=== PATIENT | male | born 1945 | race Hispanic/Latino ===

== ENCOUNTER 2018-08-25 17:30 | Inpatient (IN) | payer MEDICARE | END 2018-08-29 14:01 | disposition home or self-care (01) | LOC: EDH 17:30 → EDHIP 19:51 → 3CH 08-26 17:46 | DX: J12.9 Viral pneumonia, unspecified (principal); J96.91 Respiratory failure, unspecified with hypoxia; J44.1 Chronic obstructive pulmonary disease with (acute) exacerbation; J44.0 Chronic obstructive pulmonary disease with (acute) lower respiratory infection ==

== ENCOUNTER → 2024-02-20 | Outpatient (CLI) | payer MEDICARE | END | disposition home or self-care (01) | LOC: RAH 12:20 | PROVIDERS: ATTEND Family Medicine | DX: G31.89 Other specified degenerative diseases of nervous system (principal); R41.82 Altered mental status, unspecified; R29.6 Repeated falls; F10.20 Alcohol dependence, uncomplicated | CPT/HCPCS: 70450 ==

== ENCOUNTER 2024-08-31 12:33 | Emergency (ER) | payer MEDICARE, OTHER ==
[~2024-08-31] VITALS: Ht 160 cm; Wt 52.2 kg
--- NOTE | 2024-08-31 12:48 | ERN ---
ED Note History of Present Illness Stated Complaint: WEAKNESS Chief Complaint: Weakness Time Seen by MD: 12:38 Dictation: PATIENT IS A 79-YEAR-OLD MALE COMING IN VIA EMS WITH COMPLAINTS OF SEVERE GENERALIZED BODY WEAKNESS, DECREASED APPETITE FOR THE LAST SEVERAL DAYS. NO F EVER NO CHILLS NO NAUSEA VOMITING. EMS STATES FAMILY TOLD HIM THEY HE HAD BEEN TO [facility] WITH A HIM TWO DAYS AGO AND BEEN DIAGNOSED WITH A URINARY TRACT INFECTION WAS PRESCRIBED ANTIBIOTICS. HE HAS NOT DONE ANY BETTER SINCE THAT VISIT, HE HAS NOT BEEN TO SEE HIS PRIMARY CARE DOCTOR. PATIENT IS ALERT AND ORIENTED IS ANSWERING QUESTIONS STATES HE HAS NO PAIN AT THIS TIME. Allergies: Coded Allergies: No Known Allergies (Verified Allergy, Unknown, 08/25/18) Home Meds No Active Prescriptions or Reported Meds Past Medical History Past Medical History: No Pertinent History Surgical History: None RN Note Reviewed/Agreed w/PFSH: Yes Review of System Dictation CONSTITUTIONAL: NEGATIVE EXCEPT FOR HPI WEAK HEAD/FACE: NEGATIVE EXCEPT FOR HPI EENT: NEGATIVE EXCEPT FOR HPI RESPIRATORY: NEGATIVE EXCEPT FOR HPI GASTROINTESTINAL/ABDOMINAL: NEGATIVE EXCEPT FOR HPI GENITOURINARY: NEGATIVE EXCEPT FOR HPI MUSCULOSKELETAL: NEGATIVE EXCEPT FOR HPI INTEGUMENTARY: NEGATIVE EXCEPT FOR HPI NEUROLOGICAL/PSYCH: NEGATIVE EXCEPT FOR HPI HEMATOLOGIC/LYMPHATIC: NEGATIVE EXCEPT FOR HPI ALL SYSTEMS NEGATIVE, EXCEPT NOTED ABOVE. 13 POINT REVIEW OF SYSTEMS ASSESSED AND ALL NEGATIVE EXCEPT FOR ABOVE. Initial Vital Sign VS Vital Signs Date Time Temp Pulse Resp B/P (MAP) Pulse Ox O2 Delivery O2 Flow Rate FiO2 08/31/24 12:34 100.6 84 16 129/74 98 Room Air 0 08/31/24 12:48 21 Physical Exam Dictation VITAL SIGNS REVIEWED GENERAL APPEARANCE: ALERT, ORIENTED X 3, PATIENT VERY WEAK AND DEBILITATED.. HEAD AND FACE: NON-TRAUMATIC. EYES: PERRL, PINK CONJUNCTIVAS, EYELID NO TRAUMA, ANTERIOR CHAMBER WITH ARCUS SENILIS. EARS: PINNAS INTACT AND NO SIGNS OF TRAUMA OR ERYTHEMA EAR CANALS CLEAR AND NO DISCHARGE TM NO ERYTHEMA NOSE: NO DISCH, TONGUE PINK, DRY MUCOUS MEMBRANE PHARYNX CLEAR,NO ERYTHEMA, TONSILS NO EXUDATES, NO ABSCESSES NOTED, MUCOUS MEMBRANE MOIST NECK: SUPPLE, NON-TENDER, NO THYROMEGALY, NO MASSES, NO JVD, NO BRUITS BREAST:DEFERRED CHEST:NO TENDERNESS, NO CREPITUS, NO PARADOXICAL MOVEMENT, NO RETRACTIONS LUNGS:CLEAR, WELL-VENTILATED, SYMMETRIC, NO RALES, NO WHEEZING, NO RHONCHI, NO STRIDOR, GOOD BREATH SOUNDS BILATERALLY HEART: REGULAR RATE, REGULAR RHYTHM, NO MURMUR, NO GALLOPS VASCULAR: NO PERIPHERAL EDEMA, ABDOMEN: SOFT, POSITIVE BOWEL SOUNDS, NONDISTENDED, NO GUARDING, NONTENDER, NO REBOUND, NO MASSES NO HEPATOMEGALY, NO SPLENOMEGALY, NO SPENCER'S SIGN, NO HERNIAS. RECTAL: DEFERRED GENITAL: DEFERRED NEUROLOGICAL: NORMAL SPEECH, MOTOR FUNCTION INTACT, SENSORY FUNCTION INTACT 4/+5 STRENGTH ALL EXTREMITIES MUSCULOSKELETAL: NECK NONTENDER, FULL RANGE OF MOTION, BACK NONTENDER, FULL RANGE OF MOTION, EXTREMITIES: NONTENDER, FULL RANGE OF MOTION SKIN: COLOR PINK, DRY, NO TURGOR, NO RASH, NO LACERATIONS, NO ABRASIONS, NO CONTUSIONS. LYMPHATIC: DEFERRED Results (Laboratory/Radiology) Laboratory/Radiology Laboratory Tests Test 08/31/24 13:19 08/31/24 15:20 White Blood Count 4.9 K/uL (4.8-10.8) Red Blood Count 3.78 MIL/uL (4.50-6.20) L Hemoglobin 11.2 g/dL (14.0-18.0) L Hematocrit 34.8 % (42-54) L Mean Corpuscular Volume 92.1 fL (79-99) Mean Corpuscular Hemoglobin 29.6 pg (27.0-33.0) Mean Corpuscular Hemoglobin Concent 32.2 g/dL (32.0-36.0) Red Cell Distribution Width 14.7 % (11.0-15.5) Platelet Count 148 K/uL (130-400) Mean Platelet Volume 11.5 fL (7.5-10.5) H Immature Granulocyte % (Auto) 0.4 % (0-1) Neutrophils (%) (Auto) 80.4 % (40.0-77.0) H Lymphocytes (%) (Auto) 8.9 % (21.0-51.0) L Monocytes (%) (Auto) 9.7 % (3.0-13.0) Eosinophils (%) (Auto) 0.2 % (0.0-8.0) Basophils (%) (Auto) 0.4 % (0.0-5.0) Neutrophils # (Auto) 4.0 K/uL (1.8-7.7) Lymphocytes # (Auto) 0.4 K/uL (1.0-4.8) L Monocytes # (Auto) 0.5 K/uL (0.1-1.0) Eosinophils # (Auto) 0.01 K/uL (0.00-0.70) Basophils # (Auto) 0.02 K/uL (0.00-0.20) Absolute Immature Granulocyte (auto 0.02 K/uL (0-1) Nucleated Red Blood Cells 0.0 % (0.0-0.19) White Cell Morphology Comment See comments Sodium Level 138 mmol/L (136-145) Potassium Level 4.4 mmol/L (3.5-5.1) Chloride Level 100 mmol/L (101-111) L Carbon Dioxide Level 31 mmol/L (21-32) Blood Urea Nitrogen 12 mg/dL (7-18) Creatinine 0.9 mg/dL (0.5-1.3) Glomerular Filtration Rate Calc 87 mL/min (>90) Random Glucose 123 mg/dL (70-105) H Total Calcium 8.8 mg/dL (8.5-10.1) Troponin I High Sensitivity 10 ng/L (4-75) Urine Color YELLOW (YELLOW) Urine Appearance CLOUDY (CLEAR) H Urine pH 6.0 (5.0-8.0) Urine Specific [place] 1.019 (1.001-1.031) Urine Protein 30 mg/dL (NEGATIVE) H Urine Glucose (UA) NEGATIVE mg/dL (NEGATIVE) Urine Ketones 10 mg/dL (NEGATIVE) H Urine Occult Blood LARGE (NEGATIVE) H Urine Nitrate 2+ (NEGATIVE) H Urine Bilirubin NEGATIVE mg/dL (NEGATIVE) Urine Urobilinogen 0.2 mg/dL (0.2-1.0) Urine Leukocyte Esterase 500 Daniella/uL (NEGATIVE) H Urine RBC 6-10 /HPF (0-1) H Urine WBC 51-100 /HPF (0-1) H Urine Bacteria MANY /HPF (None Seen) 1615/X-RAY OF PELVIS AND LEFT HIP NEGATIVE PATIENT DOES HAVE HISTORY OF SURGICAL REPAIR BILATERAL HIPS INTACT Labs Reviewed?: Yes EKG Comment: EKG SINUS RHYTHM/HEART RATE 83/OCCASIONAL PAC NONSPECIFIC CHANGES TO ANTEROSEPTAL LEADS ED Course ED Course Orders Procedure Category Date Status Time Cbc With Differential LAB 08/31/24 Complete 12:45 Troponin I High LAB 08/31/24 Complete Sensitivity 12:45 Urinalysis Profile LAB 08/31/24 Complete 12:45 12 Lead Ekg Tracing- EKG 08/31/24 Complete Technical 12:45 0.9%Nacl 1000ml (Ns PHA 08/31/24 Complete 1000ml) 13:00 Chest 1vw RAD 08/31/24 Resulted 12:45 Basic Metabolic Panel LAB 08/31/24 Complete 12:45 Covid19 (Sars Antigen LAB 08/31/24 Logged Rapid) 12:45 Straight Cath If No CPOE 08/31/24 Transmitted Void X6hrs 15:18 Hip Unilat 2-3vw Left RAD 08/31/24 Taken 15:24 Culture Urine LASHONDA 08/31/24 Logged 15:58 Ceftriaxone 2gm Vial PHA 08/31/24 Complete (Rocephin 2gm Inj) 16:30 Current Medications Medications (Trade) Dose Ordered Sig/Majo Route PRN Reason Start Time Stop Time Status Last Admin Dose Admin Ceftriaxone Sodium (Rocephin 2gm Inj) 2 gm ONCE ONCE IVPB 08/31/24 16:30 08/31/24 16:31 DC Sodium Chloride 1,000 ml @ 0 mls/hr ONCE ONCE IV 08/31/24 13:00 08/31/24 13:01 DC 08/31/24 13:53 Vital Signs Date Time Temp Pulse Resp B/P (MAP) Pulse Ox O2 Delivery O2 Flow Rate FiO2 08/31/24 16:33 99.1 98 16 138/68 98 Room Air* 0 21 08/31/24 14:07 80 16 128/69 99 Room Air* 0 21 08/31/24 12:48 100.6 97 16 139/84 97 Room Air* 0 21 08/31/24 12:34 100.6 84 16 129/74 98 Room Air 0 SIXTEEN 40 PATIENT WILL BE DISCHARGED HOME HEMODYNAMICALLY STABLE WITH AUGMENTIN SON TOLD TO CONTINUE ANTIBIOTICS AND TO SEE HIS PRIMARY CARE DOCTOR IN 1-2 DAYS. HEART Score Response (Comments) Value EKG: Repolarization changes 1 Age: > 65yrs (+2) 2 Risk Factors: 1-2 risk factors (+1) 1 Initial Troponin: Normal limit (0) 0 Total 4 Medical Decision Making MDM MDM: DIFFERENTIAL DIAGNOSIS: UTI/PELVIC FRACTURE/ACS/AMI/ELECTROLYTE IMBALANCE/DEHYDRATION RATIONALE: TESTS CONSIDERED AND ORDERED SECONDARY TO SHARED DECISION MAKING INCLUDE: EKG/LABS/RADIOLOGY PREVIOUS OUTSIDE RECORDS REVIEWED: OLD ER VISITS. RISK OF COMPLICATION AND/OR MORBIDITY OR MORTALITY OF PATIENT MANAGEMENT: NONE MEDICATIONS-PER MEDICATION RECONCILIATION NEED FOR HOSPITALIZATION: PATIENT DOES NOT MEET CRITERIA FOR HOSPITALIZATION. NO NEED FOR EMERGENCY MAJOR/MINOR SURGERY: NO THERE ARE NO SOCIAL CONCERNS WITH THIS PATIENT. PRESCRIPTION DRUG MANAGEMENT AUGMENTIN PRESCRIPTIONS WILL INCLUDE SYMPTOMATIC CARE PATIENT'S PRIOR EXTERNAL MEDICAL RECORDS FROM OTHER ER VISITS WERE REVIEWED BY ME INDICATED. PRIOR TESTING AND RESULTS FROM PREVIOUS VISITS WERE REVIEWED. PRIOR TESTS WERE TAKEN INTO ACCOUNT WITH MEDICAL DECISION MAKING AND RESOURCE UTILIZATION, INDEPENDENT HISTORIAN/HISTORIANS WERE USED TO OBTAIN COMPLETE MEDICAL HISTORY. I INDEPENDENTLY INTERPRETED THE TEST THAT WERE PERFORMED, RESULTS WERE REVIEWED BY ME AND CONSIDERED FINDINGS ON RADIOLOGY IF ORDERED. MEDICAL MANAGEMENT AND EXAMINATION INTERPRETATION DISCUSSIONS WERE HAD BY ME WITH OTHER QUALIFIED HEALTHCARE PROFESSIONALS INDICATED FOR THE PATIENT'S CARE. DX & DISP Disposition: Discharge Departure Impression: Primary Impression: Acute UTI Additional Impressions: Fall, Debilitated patient Condition: Stable Scripts Amoxicillin/Potassium Clav (Amox Tr-K Clv 875-125 mg Tab) 875 Mg-125 Mg Tablet 1 EACH PO BID for 7 Days, #14 TAB 0 Refills Prov: ANDERSON BELTRE NP 08/31/24 Additional Instructions: FOLLOW-UP WITH PRIMARY CARE PROVIDER IN 1 TO 2 DAYS. TAKE MEDICATIONS DIRECTED HERE IN THE EMERGENCY ROOM. OKAY TO CONTINUE HOME MEDICATIONS UNLESS OTHERWISE DISCUSSED DURING YOUR VISIT IN THE EMERGENCY ROOM TODAY. RETURN TO YOUR NEAREST EMERGENCY ROOM IF SYMPTOMS WORSEN OR IF THERE IS NO IMPROVEMENT. CALL 911 IF YOU NEED IMMEDIATE ASSISTANCE. TAKE TYLENOL OR MOTRIN [id number] NEEDED AND IF NO CONTRAINDICATIONS ARE PRESENT. INCREASE ORAL HYDRATION. A WOUND CULTURE OR URINE CULTURE WAS ORDERED HERE IN THE EMERGENCY ROOM DEPARTMENT PLEASE FOLLOW-UP WITH PRIMARY CARE PROVIDER AND ADVISE THEM TO GET REPEAT PORTS FROM OUR FACILITY. IF YOU HAD ANY [place] WRAP/SPLINTS THAT WERE APPLIED HERE, PLEASE DO NOT REMOVE THEM UNTIL YOU SEE YOUR PRIMARY CARE OR SPECIALTY. TAKE ANTIBIOTICS DIRECTED UNTIL GONE., INCREASE WATER INTAKE. , SEE YOUR PRIMARY CARE DOCTOR FOR FOLLOW UP. Referrals: MARILU VICTORIA M.D. (PCP) Time of Disposition: 16:43 I have reviewed the case, and I agree with, Diagnosis and Plan ANDERSON BELTRE NP Aug 31, 2024 12:48
--- NOTE | 2024-08-31 13:01 | EKG ---
[facility] Test Date: 2024-08-31 Test Time: 12:56:49 Pat Name: ALECIA HURST Department: ED Room: Gender: M Bankruptcy Processor: [id number] : 1945 Requested By: ANDERSON BELTRE Order Number: [id number] Reading MD: Rodri Quiros Measurements Intervals [place] Rate: 83 P: 100 FL: 139 QRS: 68 QRSD: 88 T: 80 QT: 403 QTc: 472 Interpretive Statements Sinus rhythm Atrial premature complexes Anteroseptal infarct, age indeterminate Compared to ECG 08/25/2018 18:23:41 Atrial premature complex(es) now present Myocardial infarct finding now present ST (T wave) deviation no longer present Electronically Signed On 08-31-2024 16:46:38 LABORATORY TECHNICAL SPECIALIST by Rodri Quiros Please click the below link to view image of tracing.
[2024-08-31 13:39] LABS: BASOPHILS # (AUTO) 0.02 K/uL (0.00-0.20); BASOPHILS % (AUTO) 0.4 % (0.0-5.0); EOSINOPHILS # (AUTO) 0.01 K/uL (0.00-0.70); EOSINOPHILS % (AUTO) 0.2 % (0.0-8.0); HEMATOCRIT 34.8 % (42-54); IMMATURE GRANULOCYTE ABSOLUTE 0.02 K/uL (0-1); LYMPHOCYTES # (AUTO) 0.4 K/uL (1.0-4.8); LYMPHOCYTES % (AUTO) 8.9 % (21.0-51.0); MEAN CORPUSCULAR HEMOGLOBIN 29.6 pg (27.0-33.0); MEAN CORPUSCULAR HGB CONC 32.2 g/dL (32.0-36.0); MEAN CORPUSCULAR VOLUME 92.1 fL (79-99); MONOCYTES # (AUTO) 0.5 K/uL (0.1-1.0); MONOCYTES % (AUTO) 9.7 % (3.0-13.0); NEUTROPHILS % (AUTO) 80.4 % (40.0-77.0); PLATELET COUNT (AUTO) 148 K/uL (130-400); RED BLOOD CELL COUNT(AUTO) 3.78 MIL/uL (4.50-6.20); RED CELL DISTRIBUTION WIDTH 14.7 % (11.0-15.5); WHITE BLOOD COUNT (AUTO) 4.9 K/uL (4.8-10.8)
[2024-08-31 13:48] LABS: CREATININE 0.9 mg/dL (0.5-1.3); POTASSIUM 4.4 mmol/L (3.5-5.1)
[2024-08-31] MEDS: 0.9%NACL 1000ML 1,000 ML IV ONE (13:53)
--- NOTE | 2024-08-31 15:21 | HMCIMG ---
CHEST 1VW HISTORY: Shortness of breath COMPARISON: 08/25/2018 FINDINGS: A frontal projection of the chest was obtained. Prominent interstitial markings are seen with possible superimposed infiltrates. The heart is borderline enlarged. All the lines and tubes are again seen in place. No evidence of aortic calcification is seen. IMPRESSION: 1. Prominent interstitial markings are seen with possible superimposed infiltrates.
--- NOTE | 2024-08-31 15:29 | NUR ---
URINE COLLECTED VIA STRAIGHT CATH
[2024-08-31 15:54] LABS: APPEARANCE,URINE CLOUDY (CLEAR); BILIRUBIN,URINE NEGATIVE (NEGATIVE); COLOR,URINE YELLOW (YELLOW); GLUCOSE, URINE (UA) NEGATIVE (NEGATIVE); KETONES,URINE 10 mg/dL (NEGATIVE); LEUKOCYTE ESTERASE ,URINE 500 Leu/uL (NEGATIVE); NITRATE,URINE 2+ (NEGATIVE); OCCULT BLOOD,URINE LARGE (NEGATIVE); PROTEIN,URINE 30 mg/dL (NEGATIVE); UROBILINOGEN,URINE 0.2 mg/dL (0.2-1.0)
[2024-08-31 15:58] LABS: ADD UA MICROSCOPIC YES
[2024-08-31 16:19] LABS: BACTERIA,URINE MANY /HPF (None Seen); MUCUS,URINE FEW LPF (None Seen); WBC,URINE 51-100 /HPF (0-1)
[2024-08-31] MEDS ORDERED: AMOX1TAB16 PO (16:44)
[2024-08-31] MEDS: CEFTRIAXONE 2GM VIAL IVPB ONE (16:46)
--- NOTE | 2024-08-31 17:26 | HMCIMG ---
HIP UNILAT 2-3VW LEFT HISTORY: Left lateral hip pain COMPARISON: None TECHNIQUE: 4 images of bilateral hips were obtained. FINDINGS: Postop changes are seen of bilateral femur. There is no acute displaced fracture or dislocation. Degenerative changes are seen. IMPRESSION: 1. Findings as described above.
[2024-08-31 17:29] VITALS: BP 134/72; PULSE 97; RESP 16; TEMP 99.6; O2SAT 98
--- NOTE | 2024-09-02 14:57 | NUR ---
ESBL OF URINE REPORTED BASED ON URINE CULTURE, DR. DELAROSA ORDERS MACROBID [id number] BID AND STOP AUGMENTIN, PT CALLED, PHARMACY OF CHOICE IS [facility], RX CALLED TO PHARMACY
== END 2024-08-31 17:31 | disposition home or self-care (01) ==
LOC: EDH 12:33
DX: N39.0 Urinary tract infection, site not specified (principal); M25.552 Pain in left hip; R53.81 Other malaise; W18.39XA Other fall on same level, initial encounter; Y93.9 Activity, unspecified; Y92.89 Other specified places as the place of occurrence of the external cause; Y99.8 Other external cause status
CPT/HCPCS: 99285; 96374; 96361; 71045; 84484; 80048; 85025; 87086 ×2; 87186; 81001; 36415; 73502; 93005; J7030; J0696